=== PATIENT | male | born 1950 | race Caucasian/White ===

== ENCOUNTER 2020-10-31 07:42 | Outpatient (CLI) | payer MEDICARE | END 2020-10-31 23:59 | disposition home or self-care (01) | LOC: ROC 07:42 | PROVIDERS: ATTEND Radiology Radiation Oncology | DX: C61 Malignant neoplasm of prostate (principal); F17.210 Nicotine dependence, cigarettes, uncomplicated | CPT/HCPCS: G0463 ==

== ENCOUNTER 2020-12-08 07:49 | Outpatient (CLI) | payer MEDICARE | END 2020-12-08 23:59 | disposition home or self-care (01) | LOC: ROC 07:49 | PROVIDERS: ATTEND Radiology Radiation Oncology | DX: C61 Malignant neoplasm of prostate (principal); N41.9 Inflammatory disease of prostate, unspecified; N39.0 Urinary tract infection, site not specified; Z87.891 Personal history of nicotine dependence | CPT/HCPCS: G0463 ==

== ENCOUNTER 2020-12-15 07:07 | Outpatient (CLI) | payer MEDICARE ==
[2020-12-15] MEDS ORDERED: LEUPROLIDE (ELIGARD) 22.5 MG SYR SQ ONE (09:20)
== END 2020-12-15 23:59 | disposition home or self-care (01) ==
LOC: ROC 07:07
PROVIDERS: ATTEND Radiology Radiation Oncology
DX: Z51.11 Encounter for antineoplastic chemotherapy (principal); C61 Malignant neoplasm of prostate; N39.0 Urinary tract infection, site not specified; Z87.891 Personal history of nicotine dependence
CPT/HCPCS: 96402; J9217

== ENCOUNTER → 2021-03-16 | Outpatient (CLI) | payer MEDICARE ==
[~2021-03-16] MED LIST: LEUPROLIDE (ELIGARD) 22.5 MG SYR SQ ONE
== END | disposition home or self-care (01) ==
LOC: ROC 08:02
PROVIDERS: ATTEND Radiology Radiation Oncology
DX: Z51.11 Encounter for antineoplastic chemotherapy (principal); C61 Malignant neoplasm of prostate; N39.0 Urinary tract infection, site not specified; Z87.891 Personal history of nicotine dependence
CPT/HCPCS: 96402; J9217